=== PATIENT | male | born 1935 | race Caucasian/White ===

== ENCOUNTER 2017-07-07 12:27 | Emergency (ER) | payer MEDICARE, OTHER ==
[~2017-07-07] VITALS: Ht 175.3 cm; Wt 70.0 kg
[~2017-07-07 12:27] MED LIST: ALPR.25 PO; APIX5 PO; BRIM.2%O EACH EYE; LOSA50TA PO; LUMI0.01 EACH EYE; PRED5 PO; SOTA80TA PO
[2017-07-07 12:31] VITALS: BP 155/73; PULSE 67; RESP 18; TEMP 98.9
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
[2017-07-07] MEDS ORDERED: LIDOCAINE HCL 1% 50 ML VIAL INFIL ONE (13:00)
[2017-07-07] MEDS ORDERED: TETANUS/DIPHTHERIA TOXOID ADULT 0.5 ML VIAL IM ONE (13:15)
[2017-07-07] MEDS ORDERED: TYLE325T PO (13:16)
[2017-07-07] MEDS ORDERED: CEPH-460 PO (13:16)
== END 2017-07-07 13:49 | disposition home or self-care (01) ==
LOC: PHEFT 12:27
DX: S61.412A Laceration without foreign body of left hand, initial encounter (principal); I10 Essential (primary) hypertension; Z23 Encounter for immunization; Z79.01 Long term (current) use of anticoagulants; Z86.718 Personal history of other venous thrombosis and embolism; W26.8XXA Contact with other sharp object(s), not elsewhere classified, initial encounter; Y93.H9 Activity, other involving exterior property and land maintenance, building and construction; Y92.008 Other place in unspecified non-institutional (private) residence as the place of occurrence of the external cause; Y99.8 Other external cause status
CPT/HCPCS: 90471; 90714